=== PATIENT | female | born 1935 | race Caucasian/White ===

== ENCOUNTER 2018-10-06 20:21 | Inpatient (IN) | payer MEDICARE, OTHER ==
[~2018-10-06] VITALS: Ht 152.4 cm; Wt 55.0 kg
[2018-10-06 21:20] LABS: Basophils # (auto) 0.1 uL; Basophils % (auto) 0.8 % (0.0-2.0); Eosinophils # (auto) 0.1 uL; Eosinophils % (auto) 1.2 % (0.0-7.0); Hematocrit 21.6 % (36.0-46.0); Hemoglobin 7.1 g/dL (12.2-16.2); Lymphocytes # (auto) 0.9 uL; Lymphocytes % (auto) 13.6 % (10.0-50.0); Mean Corpuscular Hemoglobin 28.3 pg (28.0-32.0); Mean Corpuscular Hgb Conc. 32.9 g/dL (32.0-36.0); Mean Corpuscular Volume 86.1 fL (80.0-100.0); Monocytes # (auto) 1.1 uL; Monocytes % (auto) 16.4 % (0.0-12.0); Neutrophils # (auto) 4.5 uL; Nucleated Red Blood Cells % 0.1 %; Platelet Count (auto) 253 10^3/uL (140-450); Red Blood Cells 2.51 10^6/uL (4.0-5.20); Red Cell Distribution Width 16.3 % (11.8-14.3); White Blood Cell 6.6 10^3/uL (4.4-10.8)
[2018-10-06 21:30] LABS: Albumin 3.4 g/dL (3.4-5.0); Calcium 9.9 mg/dL (8.5-10.1); INR 2.52 (0.9-1.15); Magnesium 2.2 mg/dL (1.6-2.6); Partial Thromboplastin Time 37.3 sec (23.78-33.04); Prothrombin Time 25.6 sec (9.27-12.13)
[2018-10-06 21:36] LABS: Bilirubin, Total 0.3 mg/dL (0.2-1.0); Total Protein 6.9 g/dL (6.4-8.2)
[2018-10-06 22:29] LABS: Urine Bacteria FEW /hpf (None Seen); Urine Blood 2+ /uL (Negative); Urine Hyaline Cast FEW /lpf (0 - 2); Urine Mucus FEW (None Seen); Urine Specific Gravity 1.017 (1.001-1.035); Urine WBC 9 /hpf (0 - 5)
[2018-10-06] MEDS ORDERED: MORPHINE SULFATE 4 MG/ML SYR/VIAL IV ONE (23:00)
[2018-10-06] MEDS ORDERED: ONDANSETRON HCL 4 MG/2 ML VIAL IV ONE (23:00)
[2018-10-07] VITALS (11 sets, daily range): BP systolic 95–112; BP diastolic 47–54
[2018-10-07] MEDS ORDERED: ONDANSETRON HCL 4 MG/2 ML VIAL IV PRN (04:15)
[2018-10-07] MEDS ORDERED: cefTRIAXone 1GM/50ML D5W 50 ML IV ONE (04:30)
[2018-10-07 05:33] LABS: Hematocrit 22.1 % (36.0-46.0)
[2018-10-07] MEDS ORDERED: PANTOPRAZOLE 40 MG TAB PO SCH (06:00)
[2018-10-07] MEDS: PANTOPRAZOLE 40 MG/10 ML VIAL IV SCH ×2 (09:25→21:35)
[2018-10-07 11:58] LABS: Hematocrit 20.1 % (36.0-46.0)
[2018-10-07 12:14] LABS: Hemoglobin 6.7 g/dL (12.2-16.2)
[2018-10-07] MEDS ORDERED: DOCU100T15 PO (12:36)
[2018-10-07] MEDS ORDERED: CALCTAB25 PO (12:36)
[2018-10-07] MEDS ORDERED: ACET-1156 PO (12:36)
[2018-10-07] MEDS ORDERED: ASPI-492 PO (12:36)
[2018-10-07] MEDS ORDERED: IPRA0.03 (12:38)
[2018-10-07] MEDS ORDERED: METO25TA62 PO (12:38)
[2018-10-07] MEDS ORDERED: LISI2.5T47 PO (12:38)
[2018-10-07] MEDS ORDERED: FERR-20 PO (12:38)
[2018-10-07] MEDS ORDERED: METO5TAB56 PO (12:38)
[2018-10-07] MEDS ORDERED: FURO80TA3 PO (12:38)
[2018-10-07] MEDS ORDERED: MULT-2 PO (12:47)
[2018-10-07] MEDS ORDERED: CALC500C3 PO (12:47)
[2018-10-07] MEDS ORDERED: POTA10TA51 PO (12:47)
[2018-10-07] MEDS ORDERED: SERT-274 PO (12:47)
[2018-10-07] MEDS ORDERED: WARF5TAB71 PO (12:47)
[2018-10-07] MEDS ORDERED: NITR0.4S29 SL (12:47)
[2018-10-07] MEDS ORDERED: PANT40TA2 PO (12:47)
[2018-10-07] MEDS ORDERED: CHOL400C15 PO (12:47)
[2018-10-07] MEDS ORDERED: POLY33504 PO (12:47)
[2018-10-07] MEDS: SODIUM CHLORIDE 0.9% 1,000 ML IV SCH (16:26)
[2018-10-07] MEDS ORDERED: ENOXAPARIN SOD 100 MG/1 ML SYRINGE SC ONE (18:30)
[2018-10-07] MEDS: cefTRIAXone 1GM/50ML D5W 50 ML IV SCH (21:35)
[2018-10-07] MEDS: ACETAMINOPHEN 325 MG TAB PO PRN (23:18)
[2018-10-08] VITALS (12 sets, daily range): BP systolic 88–123; BP diastolic 45–71
[2018-10-08] MEDS: DOCUSATE SOD 100 MG CAP PO PRN (01:08)
[2018-10-08] MEDS: SODIUM CHLORIDE 0.9% 1,000 ML IV SCH ×2 (02:06→15:56)
[2018-10-08] MEDS: ACETAMINOPHEN 325 MG TAB PO PRN ×2 (06:02→17:17)
[2018-10-08 06:15] LABS: Mean Corpuscular Volume 86.5 fL (80.0-100.0)
[2018-10-08 06:17] LABS: Hematocrit 20.1 % (36.0-46.0); Mean Corpuscular Hemoglobin 28.7 pg (28.0-32.0); Mean Corpuscular Hgb Conc. 33.2 g/dL (32.0-36.0); Platelet Count (auto) 213 10^3/uL (140-450); Red Blood Cells 2.32 10^6/uL (4.0-5.20); Red Cell Distribution Width 16.2 % (11.8-14.3); White Blood Cell 4.5 10^3/uL (4.4-10.8)
[2018-10-08 06:32] LABS: Albumin 2.6 g/dL (3.4-5.0); BUN/Creatinine Ratio 31.3; Calcium 8.5 mg/dL (8.5-10.1); INR 2.22 (0.9-1.15); Partial Thromboplastin Time 37.4 sec (23.78-33.04); Potassium 3.2 mmol/L (3.5-5.1); Prothrombin Time 22.7 sec (9.27-12.13)
[2018-10-08 06:34] LABS: Bilirubin, Total 0.4 mg/dL (0.2-1.0); Total Protein 5.6 g/dL (6.4-8.2)
[2018-10-08 06:35] LABS: Hemoglobin 6.7 g/dL (12.2-16.2)
[2018-10-08 06:36] LABS: Band Neutrophils % (manual) 0; Blast Cells 0; Metamyelocytes % 0; Myelocytes % 0; Promyelocytes % 0
[2018-10-08 07:32] LABS: Basophils % (manual) 1 (0.0-2.0); Eosinophils % (manual) 7 (0-7); Lymphocytes % (manual) 25 (10.0-50.0); Monocytes % (manual) 10 (0-12); Reactive Lymphocytes 1
[2018-10-08] MEDS ORDERED: ENOXAPARIN SOD 60 MG/0.6 ML SYRINGE SC SCH (10:00)
[2018-10-08] MEDS: PANTOPRAZOLE 40 MG/10 ML VIAL IV SCH ×2 (14:12→21:27)
[2018-10-08] MEDS ORDERED: PHYTONADIONE (VIT K)10 MG/ML 1ML VIAL SUBCUT ONE (17:15)
[2018-10-08] MEDS: HYDROcodone-ACET 5/325MG TAB PO PRN (21:28)
[2018-10-08] MEDS: cefTRIAXone 1GM/50ML D5W 50 ML IV SCH (21:28)
[2018-10-09] MEDS: TEMAZEPAM 15 MG CAP PO PRN (00:22)
[2018-10-09] MEDS: SODIUM CHLORIDE 0.9% 1,000 ML IV SCH ×2 (03:48→17:49)
[2018-10-09 05:14] VITALS: BP 146/72
[2018-10-09] MEDS: MORPHINE SULFATE 4 MG/ML SYR/VIAL IV PRN ×3 (06:18→23:34)
[2018-10-09 07:33] LABS: Basophils # (auto) 0.1 uL; Basophils % (auto) 0.9 % (0.0-2.0); Eosinophils # (auto) 0.2 uL; Eosinophils % (auto) 2.5 % (0.0-7.0); Hematocrit 28.8 % (36.0-46.0); Hemoglobin 9.2 g/dL (12.2-16.2); Lymphocytes # (auto) 1.1 uL; Lymphocytes % (auto) 17.2 % (10.0-50.0); Mean Corpuscular Hemoglobin 28.2 pg (28.0-32.0); Mean Corpuscular Volume 88.2 fL (80.0-100.0); Monocytes % (auto) 15.5 % (0.0-12.0); Neutrophils # (auto) 4.2 uL; Neutrophils % (auto) 63.9 % (37.0-80.0); Platelet Count (auto) 215 10^3/uL (140-450); Red Blood Cells 3.26 10^6/uL (4.0-5.20); Red Cell Distribution Width 15.8 % (11.8-14.3); White Blood Cell 6.6 10^3/uL (4.4-10.8)
[2018-10-09 07:43] LABS: INR 1.4 (0.9-1.15); Partial Thromboplastin Time 23.7 sec (23.78-33.04); Prothrombin Time 14.7 sec (9.27-12.13)
[2018-10-09 07:46] LABS: Albumin 2.7 g/dL (3.4-5.0); Potassium 4.2 mmol/L (3.5-5.1)
[2018-10-09 07:48] LABS: BUN/Creatinine Ratio 24.2
[2018-10-09 07:51] LABS: Bilirubin, Total 0.5 mg/dL (0.2-1.0); Total Protein 6.3 g/dL (6.4-8.2)
[2018-10-09 08:56] VITALS: BP 133/71
[2018-10-09] MEDS: PANTOPRAZOLE 40 MG/10 ML VIAL IV SCH ×2 (09:25→21:20)
[2018-10-09] MEDS: HYDROcodone-ACET 5/325MG TAB PO PRN ×2 (09:26→21:38)
[2018-10-09] MEDS ORDERED: PHYTONADIONE (VIT K)10 MG/ML 1ML VIAL SUBCUT SCH (10:00)
[2018-10-09 12:42] VITALS: BP 123/64
[2018-10-09 17:13] VITALS: BP 129/68
[2018-10-09] MEDS: cefTRIAXone 1GM/50ML D5W 50 ML IV SCH (21:20)
[2018-10-09 21:59] VITALS: BP 122/60
[2018-10-10 05:02] LABS: Basophils # (auto) 0.1 uL; Eosinophils # (auto) 0.2 uL; Hemoglobin 8.2 g/dL (12.2-16.2); Lymphocytes # (auto) 0.9 uL; Nucleated Red Blood Cells % 0.1 %
[2018-10-10 05:03] LABS: Basophils % (auto) 1.3 % (0.0-2.0); Eosinophils % (auto) 3.7 % (0.0-7.0); Hematocrit 25.2 % (36.0-46.0); Mean Corpuscular Hemoglobin 28.6 pg (28.0-32.0); Mean Corpuscular Hgb Conc. 32.6 g/dL (32.0-36.0); Mean Corpuscular Volume 87.6 fL (80.0-100.0); Monocytes # (auto) 0.8 uL; Neutrophils # (auto) 2.6 uL; Neutrophils % (auto) 56.5 % (37.0-80.0); Platelet Count (auto) 178 10^3/uL (140-450); Red Blood Cells 2.87 10^6/uL (4.0-5.20); Red Cell Distribution Width 15.8 % (11.8-14.3); White Blood Cell 4.6 10^3/uL (4.4-10.8)
[2018-10-10 05:06] LABS: Monocytes % (auto) 18.5 % (0.0-12.0)
[2018-10-10 05:16] LABS: INR 1.13 (0.9-1.15); Partial Thromboplastin Time 31.2 sec (23.78-33.04)
[2018-10-10 05:20] LABS: Albumin 2.3 g/dL (3.4-5.0); Calcium 8.5 mg/dL (8.5-10.1); Potassium 3.7 mmol/L (3.5-5.1)
[2018-10-10 05:25] LABS: BUN/Creatinine Ratio 20.7; Bilirubin, Total 0.6 mg/dL (0.2-1.0); Total Protein 5.6 g/dL (6.4-8.2)
[2018-10-10 05:51] VITALS: BP 109/63
[2018-10-10] MEDS: HYDROcodone-ACET 5/325MG TAB PO PRN (07:02)
[2018-10-10 08:00] VITALS: BP 147/78
[2018-10-10] MEDS: SODIUM CHLORIDE 0.9% 1,000 ML IV SCH (08:30)
[2018-10-10] MEDS ORDERED: MIDAZOLAM HCL 5 MG/ML-1ML VIAL ONE (08:53)
[2018-10-10] MEDS ORDERED: diphenhdrAMINE 50mg/ml (500mg/10ml VIAL) ONE (08:53)
[2018-10-10] MEDS ORDERED: FLUMAZENIL 0.1 MG/ML INJ 10ML MDV IV ONE (08:53)
[2018-10-10] MEDS ORDERED: LIDOCAINE VISCOUS 2% 15ML UD ONE (08:53)
[2018-10-10] MEDS ORDERED: NALOXONE HCL 0.4 MG/ML VIAL ONE (08:53)
[2018-10-10] MEDS ORDERED: fentaNYL CITRATE 100 MCG/2 ML VL ONE (08:54)
[2018-10-10 09:00] VITALS: BP 126/64
[2018-10-10] MEDS: MORPHINE SULFATE 4 MG/ML SYR/VIAL IV PRN ×2 (09:06→20:42)
[2018-10-10 13:00] VITALS: BP 105/60
[2018-10-10 17:34] VITALS: BP 137/71
[2018-10-10] MEDS: cefTRIAXone 1GM/50ML D5W 50 ML IV SCH (21:16)
[2018-10-10] MEDS: TEMAZEPAM 15 MG CAP PO PRN (21:53)
[2018-10-10] MEDS: DOCUSATE SOD 100 MG CAP PO PRN (21:53)
[2018-10-10 23:05] VITALS: BP 126/66
[2018-10-11] MEDS: MORPHINE SULFATE 4 MG/ML SYR/VIAL IV PRN ×2 (04:15→08:52)
[2018-10-11 05:00] VITALS: BP 125/66
[2018-10-11 05:55] LABS: Basophils # (auto) 0.1 uL; Basophils % (auto) 1.3 % (0.0-2.0); Eosinophils # (auto) 0.2 uL; Eosinophils % (auto) 2.9 % (0.0-7.0); Hematocrit 28.1 % (36.0-46.0); Hemoglobin 8.9 g/dL (12.2-16.2); Lymphocytes # (auto) 0.8 uL; Lymphocytes % (auto) 14.2 % (10.0-50.0); Mean Corpuscular Hemoglobin 28.2 pg (28.0-32.0); Mean Corpuscular Hgb Conc. 31.8 g/dL (32.0-36.0); Mean Corpuscular Volume 88.7 fL (80.0-100.0); Monocytes # (auto) 0.9 uL; Monocytes % (auto) 16.2 % (0.0-12.0); Neutrophils # (auto) 3.5 uL; Neutrophils % (auto) 65.4 % (37.0-80.0); Platelet Count (auto) 188 10^3/uL (140-450); Red Blood Cells 3.16 10^6/uL (4.0-5.20); Red Cell Distribution Width 15.7 % (11.8-14.3); White Blood Cell 5.3 10^3/uL (4.4-10.8)
[2018-10-11 06:21] LABS: INR 1.05 (0.9-1.15); Partial Thromboplastin Time 28.5 sec (23.78-33.04); Prothrombin Time 11.2 sec (9.27-12.13)
[2018-10-11 06:27] LABS: Albumin 2.4 g/dL (3.4-5.0); BUN/Creatinine Ratio 24.2; Bilirubin, Total 0.2 mg/dL (0.2-1.0); Calcium 8.7 mg/dL (8.5-10.1); Total Protein 5.9 g/dL (6.4-8.2)
[2018-10-11] MEDS: SODIUM CHLORIDE 0.9% 1,000 ML IV SCH ×3 (06:57→23:25)
[2018-10-11 09:00] VITALS: BP 142/72
[2018-10-11] MEDS: HYDROcodone-ACET 5/325MG TAB PO PRN ×2 (10:49→17:59)
[2018-10-11] MEDS: FAMOTIDINE 20 MG TAB PO SCH (10:49)
[2018-10-11 13:00] VITALS: BP 141/72
[2018-10-11 16:51] VITALS: BP 122/67
[2018-10-11] MEDS: cefTRIAXone 1GM/50ML D5W 50 ML IV SCH (21:46)
[2018-10-11 22:00] VITALS: BP 121/68
[2018-10-12] MEDS: HYDROcodone-ACET 5/325MG TAB PO PRN ×3 (03:29→20:11)
[2018-10-12 05:00] VITALS: BP 115/67
[2018-10-12 05:35] VITALS: BP_SYST 120
[2018-10-12] MEDS: MORPHINE SULFATE 4 MG/ML SYR/VIAL IV PRN (09:10)
[2018-10-12] MEDS: FAMOTIDINE 20 MG TAB PO SCH (09:35)
[2018-10-12 09:38] VITALS: BP 120/62
[2018-10-12] MEDS: SODIUM CHLORIDE 0.9% 1,000 ML IV SCH (12:45)
[2018-10-12 14:02] VITALS: BP 140/68
[2018-10-12 17:00] VITALS: BP 151/79
== END 2018-10-12 21:00 | disposition home or self-care (01) | DRG 377 ==
LOC: ER 20:21 → OVERFLOW 10-07 04:17 → TELE 10-07 04:52 → TELE-WESTW 10-07 05:15
PROVIDERS: ADMIT Nurse Practitioner; ATTEND Family Medicine
PROC: 30233N1 Transfusion of Nonautologous Red Blood Cells into Peripheral Vein, Percutaneous Approach (ICD-10-PCS; 2018-10-07)
PROC: 0DJ08ZZ Inspection of Upper Intestinal Tract, Via Natural or Artificial Opening Endoscopic (ICD-10-PCS; principal; 2018-10-10 10:16)
DX: K92.2 Gastrointestinal hemorrhage, unspecified (principal); N17.0 Acute kidney failure with tubular necrosis; D62 Acute posthemorrhagic anemia; N39.0 Urinary tract infection, site not specified; D68.9 Coagulation defect, unspecified; I13.0 Hypertensive heart and chronic kidney disease with heart failure and stage 1 through stage 4 chronic kidney disease, or unspecified chronic kidney disease; I82.612 Acute embolism and thrombosis of superficial veins of left upper extremity; S26.90XA Unspecified injury of heart, unspecified with or without hemopericardium, initial encounter; I70.0 Atherosclerosis of aorta; J44.9 Chronic obstructive pulmonary disease, unspecified; I50.9 Heart failure, unspecified; N18.3 Chronic kidney disease, stage 3 (moderate); E78.5 Hyperlipidemia, unspecified; Z79.01 Long term (current) use of anticoagulants; D64.9 Anemia, unspecified; B96.20 Unspecified Escherichia coli [E. coli] as the cause of diseases classified elsewhere; E78.00 Pure hypercholesterolemia, unspecified; G89.29 Other chronic pain; M54.9 Dorsalgia, unspecified; I48.2 Chronic atrial fibrillation; I71.4 Abdominal aortic aneurysm, without rupture; K57.30 Diverticulosis of large intestine without perforation or abscess without bleeding; M06.9 Rheumatoid arthritis, unspecified; M41.9 Scoliosis, unspecified; M77.9 Enthesopathy, unspecified; M81.0 Age-related osteoporosis without current pathological fracture; N20.0 Calculus of kidney; T45.515A Adverse effect of anticoagulants, initial encounter; Y92.89 Other specified places as the place of occurrence of the external cause; Z90.710 Acquired absence of both cervix and uterus; Z95.0 Presence of cardiac pacemaker; Z95.2 Presence of prosthetic heart valve; M48.061 Spinal stenosis, lumbar region without neurogenic claudication; S32.009D Unspecified fracture of unspecified lumbar vertebra, subsequent encounter for fracture with routine healing; S22.9XXD Fracture of bony thorax, part unspecified, subsequent encounter for fracture with routine healing
CPT/HCPCS: 36415; 36430; 71045; 72128; 72131; 74176; 80053; 81001; 82150; 83690; 83735; 84484; 85007; 85014; 85018; 85025; 85027; 85379; 85610; 85730; 86850; 86900; 86901; 86920; 87086; 87088; 87186; 93971; 94761; 96365; 96366; 96375; A6257; C9113; G0378; J0696; J1200; J2250; J2405; J3430